=== PATIENT | male | born 1965 | race American Indian/Alaskan Native ===

== ENCOUNTER → 2022-07-13 | Emergency (ER) | payer OTHER ==
[~2022-07-13] VITALS: Ht 172.7 cm; Wt 46.2 kg
[~2022-07-13] MED LIST: LEVOFLOXACIN250 MG PO; OXYCODONE HCL10 MG PO; ZOFRAN4 MG PO
[2022-07-13 04:05] VITALS: BP 100/65
== END ==
LOC: ED 00:56
DX: S06.6X0A Traumatic subarachnoid hemorrhage without loss of consciousness, initial encounter (principal); S01.01XA Laceration without foreign body of scalp, initial encounter; W21.89XA Striking against or struck by other sports equipment, initial encounter; Z23 Encounter for immunization; F17.200 Nicotine dependence, unspecified, uncomplicated
CPT/HCPCS: 12002; 36415; 70450; 80053; 85025; 90471; 90714; 99285-25; G0480; J7121